=== PATIENT | female | born 1960 | race Caucasian/White ===

== ENCOUNTER 2017-06-29 11:16 | Emergency (ER) | payer OTHER ==
[~2017-06-29] VITALS: Ht 157.5 cm; Wt 77.1 kg
[~2017-06-29 11:16] MED LIST: ASA81 MG; COZAAR25 MG; PREVACID15 MG
[2017-06-29] MEDS ORDERED: AMLODIPINE BESYL5 MG (11:50)
[2017-06-29] MEDS ORDERED: COZAAR100 MG (11:50)
[2017-06-29] MEDS ORDERED: DICLOFENAC POTA50 MG PO (15:33)
[2017-06-29] MEDS ORDERED: MEDROLPACK PO (15:33)
== END 2017-06-29 16:20 | disposition home or self-care (01) ==
LOC: ER 11:16
DX: M54.2 Cervicalgia (principal)